=== PATIENT | female | born 1970 | race Caucasian/White ===

== ENCOUNTER 2018-12-17 07:10 | Outpatient (CLI) | payer OTHER | END 2018-12-17 23:59 | disposition home or self-care (01) | LOC: CFH 07:10 | PROVIDERS: ATTEND Surgery | DX: N64.52 Nipple discharge (principal); N63.20 Unspecified lump in the left breast, unspecified quadrant | CPT/HCPCS: 19285; 77065; J3490 ==

== ENCOUNTER 2018-12-27 06:12 | Day surgery (SDC) | payer OTHER ==
[~2018-12-27] VITALS: Ht 176.5 cm; Wt 95.1 kg
[2018-12-27] MEDS ORDERED: BUPIVACAINE/PF 0.5% ONE (06:47)
[2018-12-27] MEDS ORDERED: EPINEPHRINE 1 MG/ML, 1ML ONE (06:48)
[2018-12-27] MEDS ORDERED: FENTANYL PF 100 MCG/2ML ONE ×2 (07:00→08:43)
[2018-12-27] MEDS ORDERED: DEXAMETHASONE 4 MG/ML, 1ML ONE ×2 (07:00)
[2018-12-27] MEDS ORDERED: PROPOFOL 10 MG/ML, 20ML ONE (07:00)
[2018-12-27] MEDS ORDERED: SCOPOLAMINE PATCH, 1.5MG PATCH.TD72 TD ONE (07:00)
[2018-12-27] MEDS ORDERED: MIDAZOLAM 1 MG/ML, 2ML ONE (07:00)
[2018-12-27] MEDS ORDERED: LIDOCAINE-MPF 2% ,5ML ONE (07:00)
[2018-12-27] MEDS ORDERED: ACETAMINOPHEN 500 MG TABLET PO ONE (07:00)
[2018-12-27] MEDS ORDERED: ROCURONIUM 10MG/ML,5ML ONE (07:00)
[2018-12-27 07:06] VITALS: BP 129/79
[2018-12-27] MEDS ORDERED: SUCCINYLCHOLINE 20 MG/ML, 10ML ONE (07:07)
[2018-12-27 07:26] LABS: ALANINE AMINOTRANSFERASE 22 U/L (12-78); ANION GAP 9 mmol/L (5-15); CALCIUM 9.8 mg/dL (8.5-10.1); CHLORIDE 105 mmol/L (98-107); CREATININE 0.85 mg/dL (0.55-1.02)
[2018-12-27] MEDS ORDERED: ATOR10TA PO (07:26)
[2018-12-27] MEDS ORDERED: DAPA5TAB PO (07:26)
[2018-12-27] MEDS ORDERED: METF500T27 PO (07:26)
[2018-12-27] MEDS ORDERED: LISI5TAB7 PO (07:26)
[2018-12-27] MEDS ORDERED: LACTATED RINGERS 1,000 ML IV SCH (07:27)
[2018-12-27 07:28] LABS: ALKALINE PHOSPHATASE 135 U/L (45-117); BILIRUBIN,TOTAL 0.7 mg/dL (0.2-1.0)
[2018-12-27] MEDS ORDERED: LABETALOL 5MG/ML, 20ML IV PRN (07:30)
[2018-12-27] MEDS ORDERED: PROMETHAZINE 25 MG/ML, 1ML IV PRN (07:30)
[2018-12-27] MEDS ORDERED: ONDANSETRON ODT 8 MG PO PRN (07:30)
[2018-12-27] MEDS ORDERED: HALOPERIDOL 5 MG/ML IV PRN (07:30)
[2018-12-27] MEDS ORDERED: EPHEDRINE 50 MG/ML, 1ML IVPush PRN (07:30)
[2018-12-27] MEDS ORDERED: PROMETHAZINE 12.5 MG SUPP PR PRN (07:30)
[2018-12-27] MEDS ORDERED: MORPHINE SULFATE 4 MG/ML, 1ML IVPush PRN (07:30)
[2018-12-27] MEDS ORDERED: OXYcodone 5 MG/5 ML ORAL.SOL UDC PO PRN (07:30)
[2018-12-27] MEDS ORDERED: HYDROmorphone 2 MG/ML, 1ML IVPush PRN (07:30)
[2018-12-27] MEDS ORDERED: MIDAZOLAM 1 MG/ML, 2ML IV PRN (07:30)
[2018-12-27] MEDS ORDERED: ALBUTEROL SULFATE 2.5 MG/3 ML NPPB PRN (07:30)
[2018-12-27] MEDS ORDERED: MEPERIDINE/PF 25MG/ML,1ML IVPush PRN (07:30)
[2018-12-27] MEDS ORDERED: hydrALAzine 20 MG/ML, 1ML IV PRN (07:30)
[2018-12-27] MEDS ORDERED: DIAZEPAM 5 MG/ML, 2ML IVPush PRN (07:30)
[2018-12-27] MEDS ORDERED: ONDANSETRON 2MG/ML, 2ML IV PRN (07:30)
[2018-12-27] MEDS ORDERED: ONDANSETRON 2MG/ML, 2ML ONE (07:31)
[2018-12-27] MEDS ORDERED: LIDOCAINE GEL 2%, 5ML ONE (07:44)
[2018-12-27] MEDS ORDERED: OXYcodone 5 MG/5 ML ORAL.SOL UDC ONE (08:43)
[2018-12-27] MEDS: FENTANYL PF 100 MCG/2ML IV PRN ×4 (08:45→09:00)
== END 2018-12-27 10:45 | disposition home or self-care (01) ==
LOC: OUT 06:12
PROVIDERS: ATTEND Surgery
DX: D24.2 Benign neoplasm of left breast (principal); N64.52 Nipple discharge; E11.9 Type 2 diabetes mellitus without complications; Z79.84 Long term (current) use of oral hypoglycemic drugs; Z83.3 Family history of diabetes mellitus
CPT/HCPCS: 19120; 36415; 76098; 80053; 82962; 88305; 93005; J0171; J0330; J1100; J2250; J2405; J2704; J3010; J7120